=== PATIENT | female | born 1965 | race Caucasian/White ===

== ENCOUNTER 2017-04-01 23:48 | Emergency (ER) | payer OTHER ==
[~2017-04-01] VITALS: Ht 165.1 cm; Wt 181.4 kg
[2017-04-01 23:48] VITALS: BP_SYST 140
--- NOTE | 2017-04-01 23:48 | NUR ---
Patient to ER bed 1 to gown for evaluation. Side rails up. Report given to RUPERT MATTHEWS.
--- NOTE | 2017-04-01 23:50 | NUR ---
Patient brought in by [employer] for ETOH intoxication. Patient is altered, [facility] Patient is non-responsive to name, pupils PERRLA. Patient is actively vomiting on arrival, limp and unable to clear own airway. Patient placed on side with close monitoring provided by staff and .
--- NOTE | 2017-04-01 23:55 | NUR ---
ER at bedside examining patient.
[2017-04-02] MEDS ORDERED: FOLIC ACID 1 MG, THIAMINE HCL 100 MG, MAGNESIUM SULFATE 1 GM, MVI 10 ML in NACL 0.9% 1,... IV ONE ×5
--- NOTE | 2017-04-02 | NUR ---
Patient continues to vomit, clothes, removed and patient is placed in optimal position for airway clearance on left side, suction available at bedside.
--- NOTE | 2017-04-02 00:05 | NUR ---
# 20 gauge angiocath placed to R arm by CASSIE Wei. Use of asceptic technique. Opsite placed over site. Blood return noted. Blood for lab drawn from site. Flushed with 10 cc of normal saline. No evidence of infiltration noted. Patient tolerated well.
--- NOTE | 2017-04-02 00:15 | NUR ---
# 18 gauge angiocath placed to Left AC by CASSIE Wei. Use of asceptic technique. Opsite placed over site. Blood return noted. Flushed with 10 cc of normal saline. No evidence of infiltration noted. Patient tolerated well.
[2017-04-02] MEDS ORDERED: THIAMINE HCL 100 MG/ML VIAL ONE (00:24)
[2017-04-02] MEDS ORDERED: MVI 10 ML VIAL IV ONE (00:24)
[2017-04-02] MEDS ORDERED: MAGNESIUM SULFATE 1 GM/2 ML VIAL ONE (00:24)
[2017-04-02] MEDS ORDERED: FOLIC ACID 5 MG/ML VIAL IV ONE (00:24)
--- NOTE | 2017-04-02 00:30 | NUR ---
Patient actively vomiting,120 ml of emesis collected. Md notified. Patient cleaned and linens replaced.
--- NOTE | 2017-04-02 00:45 | NUR ---
Patient continues to actively vomit, linens replace, patient cleaned, air remains clear at this time. Will continue to monitor closely.
[2017-04-02] MEDS ORDERED: ONDANSETRON HCL 4 MG/2 ML VIAL ONE (00:48)
[2017-04-02] MEDS ORDERED: ONDANSETRON HCL 4 MG/2 ML VIAL IVP ONE ×2 (01:00)
[2017-04-02] MEDS ORDERED: PROMETHAZINE HCL 50 MG/ML AMP IM ONE (01:00)
--- NOTE | 2017-04-02 01:00 | NUR ---
Patient responding to name, able to nod head yes, but remains altered and mostly limp at this time. MD notified. Will continue to monitor.
[2017-04-02 01:05] LABS: BASOPHILS # (AUTO) 0.1 K/uL (0.0-0.2); BASOPHILS % (AUTO) 0.9 % (0.0-2.0); EOSINOPHILS # (AUTO) 0.1 K/uL (0.0-0.4); EOSINOPHILS % (AUTO) 0.9 % (0.0-4.0); HEMATOCRIT 39.1 % (36-48); HEMOGLOBIN 12.2 g/dL (12.0-16.0); LYMPHOCYTES # (AUTO) 4.5 K/uL (1.0-5.5); MEAN CORPUSCULAR HEMOGLOBIN 24 pg (27-31); MEAN CORPUSCULAR HGB CONC 31 % (32-36); MEAN CORPUSCULAR VOLUME 77 fL (79.0-98.0); MONOCYTES # (AUTO) 0.7 K/uL (0.0-1.0); MONOCYTES % (AUTO) 5.7 % (1.7-9.3); NEUTROPHILS # (AUTO) 6.5 K/uL (1.8-7.7); NEUTROPHILS % (AUTO) 54.5 % (40.0-70.0); PLATELET COUNT (AUTO) 286 K/uL (130-430); RED BLOOD CELL COUNT(AUTO) 5.07 MIL/uL (4.2-6.2); RED CELL DISTRIBUTION WIDTH 16.3 % (9.0-15.0); WHITE BLOOD COUNT (AUTO) 11.9 K/uL (4.8-10.8)
[2017-04-02] MEDS ORDERED: NACL 0.9% 1,000 ML IV ONE (01:15)
--- NOTE | 2017-04-02 01:15 | NUR ---
Patient moving extremities in bed, responds to name, eyes remain closed, but patient is moaning lightly and nods head to when asked to if she can understand the question. Will continue to monitor closely.
[2017-04-02 01:36] LABS: ANION GAP 9 (5-15); CALCIUM 9.1 mg/dL (8.4-11.0); CHLORIDE 101 mmol/L (98-107); CREATININE 0.75 mg/dL (0.55-1.30); GLUCOSE 123 mg/dL (70-99); POTASSIUM 3.4 mmol/L (3.5-5.1); SODIUM SERUM 133 mmol/L (136-145); UREA NITROGEN, BLOOD 14 mg/dL (8-21)
[2017-04-02 01:49] LABS: GFR AFRICAN AMERICAN 105 mL/min (>90)
[2017-04-02 02:03] LABS: ALANINE AMINOTRANSFERASE 25 U/L (12-78); ALBUMIN 3.5 g/dL (3.4-4.8); ASPARTATE AMINOTRANSFERASE 26 U/L (10-37); TOTAL BILIRUBIN 0.4 mg/dL (0.0-1.0)
--- NOTE | 2017-04-02 02:15 | NUR ---
Patient resting quietly. No acute distress noted. Vital signs within normal range.
[2017-04-02 02:26] LABS: ACETAMINOPHEN < 1 ug/mL (1-30)
[2017-04-02 02:27] LABS: ALCOHOL, BLOOD 306 mg/dL (<10)
--- NOTE | 2017-04-02 03:15 | NUR ---
Patient voided in bed using bed soares. Tolerated well. Will continue to monitor.
[2017-04-02 03:24] LABS: BARBITURATE, URINE NEGATIVE (NEG <=200); BENZODIAZEPINE, URINE NEGATIVE (NEG <=150); CANNABINOID, URINE NEGATIVE (NEG <=50); COCAINE, URINE NEGATIVE (NEG <=150); METHAMPHETAMINES SCREEN,URINE NEGATIVE (NEG <=500); OPIATE, URINE NEGATIVE (NEG <=100); PHENCYCLIDINE SCREEN,URINE NEGATIVE (NEG <=25); UR TRICYCLIC ANTIDEPRESSANTS NEGATIVE (NEG <=300); URINE AMPHETAMINE NEGATIVE (NEG <=500); URINE METHADONE NEGATIVE (NEG <=200); URINE OXYCODONE SCREEN NEGATIVE (NEG <=100); URINE PROPOXYPHENE SCREEN NEGATIVE (NEG <=300)
--- NOTE | 2017-04-02 04:00 | NUR ---
Patient son at bedside. Patient talking and laughing, states she feels nauseous but does not need to vomit at this time. Vital signs are stable. Will continue to monitor.
--- NOTE | 2017-04-02 04:50 | NUR ---
at bedside. Patient sleeping at this time. Vital signs stable. No acute distress noted. Will continue to monitor.
--- NOTE | 2017-04-02 05:50 | NUR ---
Patient resting quietly. No acute distress noted. Vital signs within normal range.
--- NOTE | 2017-04-02 06:50 | NUR ---
Patient sheets cleaned and blankets changed. Patient voided in bed, able to assist with position changing and oriented to name, place, and day. Patient returned to sleep, at this time.
--- NOTE | 2017-04-02 07:11 | NUR ---
Received report from Michelle MATTHEWS, pt is resting in bed comfortably with no noted distress or discomfort.
--- NOTE | 2017-04-02 08:00 | NUR ---
Called Cesar to come and pick pt up. He stated he would be coming soon.
--- NOTE | 2017-04-02 08:12 | NUR ---
Patient given written and verbal discharge instructions and verbalizes understanding. ER MD discussed with patient the results and treatment provided. Patient in stable condition. ID arm band removed. IV catheter removed intact and dressing applied, no active bleeding. No Rx given. Patient educated on pain management and to follow up with PMD. Pain Scale 0. Waiting for to pick pt up. Opportunity for questions provided and answered.
[2017-04-02 08:13] VITALS: BP_SYST 130
--- NOTE | 2017-04-02 09:15 | NUR ---
Pt ambulated to restroom and then out the door with and daughter with no noted difficulty
[2017-04-02] MEDS ORDERED: EPINEPHrine 1 MG/ML AMP ONE (19:04)
[2017-04-02] MEDS ORDERED: DIPHENHYDRAMINE INJ 50 MG/ML VIAL ONE (19:04)
[2017-04-02] MEDS ORDERED: methylPREDNISolone SOD SUCC/PF 62.5 MG/ML VIAL ONE (19:04)
== END 2017-04-02 08:13 | disposition home or self-care (01) ==
LOC: EDBD 23:48 → SED 23:48
DX: G92 Toxic encephalopathy (principal); E11.9 Type 2 diabetes mellitus without complications; I10 Essential (primary) hypertension; F10.129 Alcohol abuse with intoxication, unspecified; Z86.2 Personal history of diseases of the blood and blood-forming organs and certain disorders involving the immune mechanism; Y90.8 Blood alcohol level of 240 mg/100 ml or more
CPT/HCPCS: 36415; 80053; 80307; 85025; 96365; 96372; 96375; 99284; G0480; G0481; G0482; J0171; J1200; J2405; J2550; J2930; J3411; J3475; J3490; J7030